=== PATIENT | female | born 1955 | race Caucasian/White ===

== ENCOUNTER 2024-09-22 10:08 | Observation (INO) | payer SELFPAY ==
--- NOTE | 2024-09-14 09:08 | EKG12_ITS ---
Test Reason : PREOP Blood Pressure : */* mmHG Vent. Rate : 73 BPM Atrial Rate : 73 BPM P-R Int : 172 ms QRS Dur : 76 ms QT Int : 390 ms P-R-T Axes : 56 78 82 degrees QTcB Int : 429 ms Normal sinus rhythm Nonspecific ST abnormality Abnormal ECG Confirmed by GRECIA WOODRUFF, HECTOR ([id number]), metropolitan editor LEONARD REYES ([id number]) on 09/15/2024 5:51:04 AM Referred By: Eda Sanabria Confirmed By: HECTOR PAIGE MD
[2024-09-14 10:00] LABS: Hemoglobin 15.1 g/dL (12.0-15.0); Mean Corp Hgb Conc 32.8 g/dL (32-36); Mean Corpuscular Hgb 28.8 pg (27.0-32.0); Mean Corpuscular Volume 87.8 fL (81-99); Platelet Count 350 K/mm3 (150-450); RBC Distribution Width CV 13.8 % (11.6-14.6); RBC Distribution Width SD 44.5 fl (35.1-43.9); Red Blood Count 5.24 M/mm3 (4.2-5.4); White Blood Count 8.5 K/mm3 (4.4-11.0)
[2024-09-14 10:47] LABS: Anion Gap 5 (5-15); BUN 13 mg/dL (7-18); BUN/Creat Ratio 16.5 RATIO (10-20); Calcium,Total 9.5 mg/dL (8.5-10.1); Chloride 106 mmol/L (98-107); Creatinine, Serum 0.79 mg/dL (0.55-1.02); EST Glomerular Filtration Rate 77 mL/min (>60); Est Glom Filt Rate - Afr Amer 93 mL/min (>60); Glucose 119 mg/dL (74-106); Potassium 3.5 mmol/L (3.5-5.1); Sodium Level 140 mmol/L (136-145)
--- NOTE | 2024-09-14 13:59 | PAT.ANESEVAL ---
Pre-Assessment Diagnosis/Proposed Procedure Planned Operative Procedure(s): A&P REPAIR,BILAT SACROSPINOUS LIGAMENT FIXATION WITH DERMIS MIDURETHERAL SLING CYSTO WITH BILAT URETHERAL CATHERIZATION Anesthesia History Anesthesia History - fourdrinier machine tender: Anesthesia History - fourdrinier machine tender Hx Hospitalization No 09/13/24 14:05 Any Problems With Anesthesia No 09/13/24 14:05 Cholinesterase deficiency No 09/13/24 14:05 You/Your Family Experience No 09/13/24 14:05 fever (hyperthermia) with Relationship Recent Exposure to Contagious Disease Does patient have nerve No 09/13/24 14:05 stimulator Patient instructed to have device shut off --Does patient have Pacemaker or ICD? When Was Last Pacemaker Check QUESTION #4 FULL TEXT: You/Your Family Experience fever (hyperthermia) with Anesthesia Last Oral Intake Last Oral intake: Last Oral Intake NPO since Meds taken in AM with sips of water? Meds patient instructed to take am of surgery PONV PONV - fourdrinier machine tender: PONV - fourdrinier machine tender Female Yes 09/13/24 14:05 HX of Motion Sickness No 09/13/24 14:05 HX of N/V After Surgery No 09/13/24 14:05 Non-Smoker Yes 09/13/24 14:05 Duration of Surgery greater Yes 09/13/24 14:05 than 60 minutes Number of Risk Factors 3 09/13/24 14:05 PONV Score Moderate Risk 09/13/24 14:05 Respiratory Assessment Respiratory Assessment - fourdrinier machine tender: Respiratory Tract Infection Hx - fourdrinier machine tender Hx Respiratory Tract Infection No 09/13/24 14:05 STOP Sleep Apnea STOP Sleep Apnea - fourdrinier machine tender: STOP Sleep Apnea - fourdrinier machine tender Hx Hypertension No 09/13/24 14:05 Hx Sleep Apnea No 09/13/24 14:05 CPAP BIPAP Do you snore loudly (louder Yes 09/13/24 14:05 than talking or can be heard Do you often feel tired/ Yes 09/13/24 14:05 fatigued/ sleepy during daytime? Has anyone observed you stop No 09/13/24 14:05 breathing during sleep? STOP Results Positive 09/13/24 14:05 QUESTION #5 FULL TEXT : Do you snore loudly (louder than talking or can be heard through closed doors)? Tobacco Use History Tobacco Use History - fourdrinier machine tender: Tobacco Use History - fourdrinier machine tender Tobacco Use Smoking Status Never smoker 09/13/24 14:05 Hx Tobacco Use No 09/13/24 14:05 Years Smoking Packs Smoked per Day Smoking Cessation Date was within the last 15 years Hx Smoking Cessation Date Hx Smoking Cessation Counseling Hematologic Medial History Hematologic Hx - fourdrinier machine tender: Hematologic Medical Hx - cable placer Hx of Blood Transfusion No 09/13/24 14:05 Hx of Transfusion in last 3 No 09/13/24 14:05 Months Date of Last Transfusion (if within last 3 months) Ever experience any problems No 09/13/24 14:05 with transfusion(s)? Specify any problems Hx of Preganancy in last 3 No 09/13/24 14:05 Months Nurse Filling Out Transfusion DSCHRIBER 09/13/24 14:05 & Questions: Date: 09/13/24 09/13/24 14:05 Time: 14:07 09/13/24 14:05 Patient unable to answer at this time (ie. confused, unrespo /Reproduction History /Reproductive History - fourdrinier machine tender: /Reproductive Hx- fourdrinier machine tender Hx Now No 09/13/24 14:05 Gestational Age (in weeks): EDC: Hx Hx Para Hx Section SAB No 09/13/24 14:05 PFSH Medical History (Updated 09/13/24 @ 14:14 by Dede Mendoza) Loss of hearing Wears glasses Wears partial dentures Post-menopausal Depression Anxiety Arthritis Bladder disease Restless legs Back pain Heartburn Shortness of breath on exertion Non-smoker History of pain when walking History of edema Hx of fracture of ankle Home Medications ?Medication ?Instructions ?Recorded ?Last Taken ?Type ZEOLITE 2 cap PO DAILY 09/13/24 Unknown History calcium lactate 325 mg tablet 650 mg PO DAILY 09/13/24 Unknown History cascara sagrada 450 mg capsule 900 mg PO DAILY 09/13/24 Unknown History cetirizine 10 mg capsule (Allergy 10 mg PO DAILY 09/13/24 Unknown History Relief (cetirizine)) cholecalciferol (vitamin D3) 25 25 mcg PO DAILY 09/13/24 Unknown History mcg (1,000 unit) capsule (Vitamin D3) d-mannose 500 mg capsule 500 mg PO DAILY 09/13/24 Unknown History garlic 200 mg tablet 200 mg PO BID 09/13/24 Unknown History iodine (kelp) 1 tab PO DAILY 09/13/24 Unknown History mirtazapine 30 mg tablet 30 mg PO QHS 09/13/24 Unknown History vitamin B complex (Vitamins B 1 tab PO DAILY 09/13/24 Unknown History Complex tablet) zinc gluconate 50 mg tablet 50 mg PO DAILY 09/13/24 Unknown History Allergy/AdvReac Type Severity Reaction Status Date / Time Tetracyclines AdvReac Intermediate Other Verified 09/13/24 13:54 Surgical History (Updated 09/13/24 @ 14:14 by Dede Mendoza) History of lumbar spinal fusion Hx of hysterectomy History of Hx of appendectomy Hx of tonsillectomy Social History Smoking Status: Never smoker Audit: Pertinent Findings Pertinent Findings EKG Perinent findings: 09/14/2014 normal sinus rhythm [address] Recommendation Anesthesia Recommendation Anesthesia recommendation: OPTIMIZED for anesthesia
[2024-09-22] VITALS (16 sets, daily range): BP systolic 104–154; BP diastolic 57–94; PULSE 64–76; RESP 16–20; TEMP 35.8–36.9; O2SAT 94–100; BMI 28.7
[2024-09-22] MEDS: Lidocaine 1% /Epi 1:100 (20ml) 20 ML Vial ×2 (06:46→09:37)
[2024-09-22] MEDS: 0.9% Normal Saline (1000mL) 1,000 ML 15 ML IV (06:47)
--- NOTE | 2024-09-22 07:09 | PCM.PRE.AN2 ---
ASA Classification* ASA Classification ASA Classification: 2 Assessment & Plan Anesthesia* Anesthesia Assessment Anesthesia Assessment: Discussed sedation and/or anesthesia options, risks, benefits, and alternatives with patient/parents/legal guardian/POA. Questions invited. The patient/parents/legal guardian/POA seems to understand and agrees to proceed with anesthesia plan. Reviewed the physical assessment, medical history, allergy history and patient home medications list prior to surgery/procedure/anesthetic and documented any changes. Performed airway and anesthesia risk assessments. Anesthesia Type Anesthesia Type: General History Source History Obtained from:: Patient and Chart Anesthesia Focused Assessment* Temperature: 97.6 F Pulse Rate: 70 Blood Pressure: 151/94 Respiratory Rate: 20 Pulse Ox: 97 Oxygen Delivery Method: Room Air Airway Assessment Mouth opens: >3 cm Mallampati Score: III Teeth Condition: Intact Neck Range of motion (ROM): Full ROM Focused Labs Anesthesia Preop lab: CBC WBC 8.5 K/mm3 (4.4-11.0) 09/14/24 09:24 RBC 5.24 M/mm3 (4.2-5.4) 09/14/24 09:24 Hgb 15.1 g/dL (12.0-15.0) H 09/14/24 09:24 Hct 46.0 % (37-47) 09/14/24 09:24 Plt Count 350 K/mm3 (150-450) 09/14/24 09:24 CHEMISTRY Potassium 3.5 mmol/L (3.5-5.1) 09/14/24 09:24 Sodium 140 mmol/L (136-145) 09/14/24 09:24 BUN 13 mg/dL (7-18) 09/14/24 09:24 Creatinine 0.79 mg/dL (0.55-1.02) 09/14/24 09:24 Glucose 119 mg/dL (74-106) H 09/14/24 09:24 COAG Pre-Assessment Diagnosis/Proposed Procedure Planned Operative Procedure(s): A&P REPAIR,BILAT SACROSPINOUS LIGAMENT FIXATION WITH DERMIS MIDURETHERAL SLING CYSTO WITH BILAT URETHERAL CATHERIZATION Anesthesia History Anesthesia History - couture alterations dressmaker: Anesthesia History - couture alterations dressmaker Hx Hospitalization No 09/13/24 14:05 Any Problems With Anesthesia No 09/13/24 14:05 Cholinesterase deficiency No 09/13/24 14:05 You/Your Family Experience No 09/13/24 14:05 fever (hyperthermia) with Relationship Recent Exposure to Contagious No 09/22/24 06:32 Disease Does patient have nerve No 09/13/24 14:05 stimulator Patient instructed to have device shut off --Does patient have Pacemaker No 09/22/24 06:32 or ICD? When Was Last Pacemaker Check QUESTION #4 FULL TEXT: You/Your Family Experience fever (hyperthermia) with Anesthesia Last Oral Intake Last Oral intake: Last Oral Intake NPO since 22:00 09/22/24 06:32 Meds taken in AM with sips of water? Meds patient instructed to take am of surgery PONV PONV - couture alterations dressmaker: PONV - couture alterations dressmaker Female Yes 09/13/24 14:05 HX of Motion Sickness No 09/13/24 14:05 HX of N/V After Surgery No 09/13/24 14:05 Non-Smoker Yes 09/13/24 14:05 Duration of Surgery greater Yes 09/13/24 14:05 than 60 minutes Number of Risk Factors 3 09/13/24 14:05 PONV Score Moderate Risk 09/13/24 14:05 Height & Weight Height & Weight: Anesthesia: Height & Weight Height 5 ft 1 in 09/22/24 06:32 Weight: 69 kg 09/22/24 06:32 Body Mass Index (BMI) 28.7 09/22/24 06:32 Respiratory Assessment Respiratory Assessment - couture alterations dressmaker: Respiratory Tract Infection Hx - couture alterations dressmaker Hx Respiratory Tract Infection No 09/13/24 14:05 STOP Sleep Apnea STOP Sleep Apnea - couture alterations dressmaker: STOP Sleep Apnea - couture alterations dressmaker Hx Hypertension No 09/13/24 14:05 Hx Sleep Apnea No 09/13/24 14:05 CPAP BIPAP Do you snore loudly (louder Yes 09/13/24 14:05 than talking or can be heard Do you often feel tired/ Yes 09/13/24 14:05 fatigued/ sleepy during daytime? Has anyone observed you stop No 09/13/24 14:05 breathing during sleep? STOP Results Positive 09/13/24 14:05 QUESTION #5 FULL TEXT : Do you snore loudly (louder than talking or can be heard through closed doors)? Tobacco Use History Tobacco Use History - couture alterations dressmaker: Tobacco Use History - couture alterations dressmaker Tobacco Use Smoking Status Never smoker 09/13/24 14:05 Hx Tobacco Use No 09/13/24 14:05 Years Smoking Packs Smoked per Day Smoking Cessation Date was within the last 15 years Hx Smoking Cessation Date Hx Smoking Cessation Counseling Hematologic Medial History Hematologic Hx - couture alterations dressmaker: Hematologic Medical Hx - furnace cooler Hx of Blood Transfusion No 09/13/24 14:05 Hx of Transfusion in last 3 No 09/13/24 14:05 Months Date of Last Transfusion (if within last 3 months) Ever experience any problems No 09/13/24 14:05 with transfusion(s)? Specify any problems Hx of Preganancy in last 3 No 09/13/24 14:05 Months Nurse Filling Out Transfusion DSCHRIBER 09/13/24 14:05 & Questions: Date: 09/13/24 09/13/24 14:05 Time: 14:07 09/13/24 14:05 Patient unable to answer at this time (ie. confused, unrespo /Reproduction History /Reproductive History - couture alterations dressmaker: /Reproductive Hx- couture alterations dressmaker Hx Now No 09/13/24 14:05 Gestational Age (in weeks): EDC: Hx Hx Para Hx Section SAB No 09/13/24 14:05 Active Medications Active Medications: Current Medications Generic Name Dose Route Start Last Admin Trade Name Freq PRN Reason Stop Dose Admin Cefazolin Sodium 2 gm/ N/A 20 mls @ 400 mls/hr 09/22/24 07:30 IV 09/22/24 07:32 PREOP ONE Sodium Chloride 1,000 mls @ 15 mls/hr 09/22/24 06:15 09/22/24 06:47 IV 09/27/24 19:34 15 mls/hr .Q48H YAJAIRA Administration Protocol PFSH Medical History Loss of hearing Wears glasses Wears partial dentures Post-menopausal Depression Anxiety Arthritis Bladder disease Restless legs Back pain Heartburn Shortness of breath on exertion Non-smoker History of pain when walking History of edema Hx of fracture of ankle Home Medications ?Medication ?Instructions ?Recorded ?Last Taken ?Type ZEOLITE 2 cap PO DAILY 09/13/24 09/21/24 History calcium lactate 325 mg tablet 650 mg PO DAILY 09/13/24 09/21/24 History cascara sagrada 450 mg capsule 900 mg PO DAILY 09/13/24 09/21/24 History cetirizine 10 mg capsule (Allergy 10 mg PO DAILY 09/13/24 09/21/24 History Relief (cetirizine)) cholecalciferol (vitamin D3) 25 25 mcg PO DAILY 09/13/24 09/21/24 History mcg (1,000 unit) capsule (Vitamin D3) d-mannose 500 mg capsule 500 mg PO DAILY 09/13/24 09/21/24 History garlic 200 mg tablet 200 mg PO BID 09/13/24 09/21/24 History iodine (kelp) 1 tab PO DAILY 09/13/24 09/21/24 History mirtazapine 30 mg tablet 30 mg PO QHS 09/13/24 09/20/24 History vitamin B complex (Vitamins B 1 tab PO DAILY 09/13/24 09/21/24 History Complex tablet) zinc gluconate 50 mg tablet 50 mg PO DAILY 09/13/24 09/21/24 History Allergy/AdvReac Type Severity Reaction Status Date / Time Tetracyclines AdvReac Intermediate Other Verified 09/22/24 06:29 Surgical History History of lumbar spinal fusion Hx of hysterectomy History of Hx of appendectomy Hx of tonsillectomy Social History Smoking Status: Never smoker Addt'l Information Additional Findings: NSR on EKG Review of Systems (Anesthesia) ROS Narrative System reviewed and no additional complaints, except as documented.
[2024-09-22] MEDS: Cefazolin 2 GM in Syringe IV (07:30)
[2024-09-22] MEDS: Estrogens,Conj. 1 Tube 1 DOSE (09:36)
--- NOTE | 2024-09-22 09:55 | PCM.POST.ANE ---
Anesthesia: Postop Eval I Current Vital Signs Temperature: 98.5 F Pulse Rate: 73 Blood Pressure: 142/94 Respiratory Rate: 16 Pulse Ox: 94 Assessment Airway patent: Yes Spontaneous unlabored respirations: Yes nausea: No Vomiting: No Anesthesia Complication: No Fluid Hydration Crystalloid volume administer (ml): 1,400 Total IV fluid infused: 1,400 Progress Note Anesthesia document: Postop Eval 1 completed: Yes
--- NOTE | 2024-09-22 10:11 | PCM.OPRPT ---
Operative Report (Standard) Operative Information Date of Procedure: 09/22/24 Pre-Operative Diagnosis: Cystocele, rectocele, vaginal vault prolapse, stress urinary incontinence Post-Operative Diagnosis: Same Surgery/Procedure Performed: Anterior and posterior repair, right sacrospinous ligament fixation, mid urethral sling, cystourethroscopy with left ureteral catheterization polyethylene combiner: Yes Program Manager Slp: Medhat Box Tasks completed by surgical dental assistant: Retracting Additional preschool teacher assistant?: No Type of Anesthesia: General RN Documented Start/Stop Times: Operation Date: 09/22/24 07:30 Case Time Into Pre-Op 09/22/24 06:13 Out of Pre-Op 09/22/24 07:27 Anesthesia Start 09/22/24 07:30 Into Room 09/22/24 07:30 Procedure Start 09/22/24 07:50 Procedure End 09/22/24 09:39 Anesthesia End 09/22/24 09:46 Out of Room 09/22/24 09:46 Into Recovery 09/22/24 09:48 Procedure Start Time: 07:50 Procedure Stop Time: 09:39 Select all DRAINS/GRAFTS/IMPLANTS that apply: Drains Drain details: 16Fr borges catheter Estimated Blood Loss: 50cc Specimen collected: No Description of surgery: The patient is a 69-year-old female with pelvic organ prolapse who underwent office testing with cystoscopy and urodynamics preoperatively. She now presents for surgical intervention. Informed consent was obtained. The patient was taken to the operating room and placed on the operating room table. Anesthesia monitored the head, neck, airway, IV access and vital signs throughout the case. Once anesthesia was appropriately administered, she was placed into exaggerated dorsolithotomy and Trendelenburg position. She was appropriately prepped and draped for the procedure. A 16 Citizen [place] Borges catheter was inserted to straight drain and the bladder was emptied. The anterior defect was isolated and injected submucosally with 1% lidocaine with epinephrine for hydrostatic dissection and hemostatic control. A vertical midline incision approximately 2 cm in length was made. Sharp and blunt dissection was performed bilaterally with care being taken to avoid entrance into the urinary bladder or the vaginal mucosa. On the right side, dissection was performed all the way to the ischial spine and the sacrospinous ligament was freed from surrounding tissue. On the patient's left side, a large arterial bleeder was encountered in the area of dissection plane for the sacrospinous ligament. This required closure with 2-0 Vicryl suture. This closed off the area of dissection and the decision was made to proceed with unilateral sacrospinous ligament fixation. The saffron device was utilized for placing a 2-0 PDS suture through the sacrospinous ligament and this was brought out through the vaginal apex in full-thickness fashion using a free needle. The pubocervical fascia was then brought together in 2 layer closure using a combination of interrupted 2-0 Vicryl and 4-0 PDS suturing. The vaginal mucosa was then closed with running interlocking 2-0 Vicryl. At this time the patient was placed in a flat supine position and the Borges catheter was removed. The cystoscope was inserted through the urethra under direct visualization into the urinary bladder. The bladder mucosa remained intact with no evidence of injury, foreign body or mucosal abnormality. The left ureteral orifice was easily intubated with a 5 Citizen [place] whistle-tip catheter which was advanced without difficulty all the way to 25 cm. There is no evidence of obstruction or injury. The process was attempted on the patient's right side but there was significant J hooking of the ureteral orifice. I was unable to pass a 0.035 angled tipped Glidewire. The patient was given intravenous methylene blue and a blue ureteral jet was observed bilaterally, indicating no evidence of ureteral injury or obstruction. The cystoscope was then removed and the Borges catheter was reinserted draining the urine bladder. At this time attention was turned towards the posterior defect. The submucosa was injected with 1% lidocaine with epinephrine and a midline incision was made approximately 2 cm in length. Sharp and blunt dissection was performed bilaterally until the rectovaginal fascia was identified. This was brought together in a 2 layer closure using 2-0 Vicryl and 4-0 PDS. The perineal body was reconstructed using interrupted suture as well. At this time the vaginal incision was closed using running interlocking 2-0 Vicryl. The mid urethra was then isolated and injected submucosally with 1% lidocaine with epinephrine for hemostatic control and hydrostatic dissection. A vertical midline incision was made approximately 1.5 cm in length. Sharp and blunt dissection was performed on either side of the urethra with care being taken to avoid entrance into the urethra or the vaginal mucosa. At this time, the trocars provided were used to pass the sling and tines through the obturator fascia bilaterally. The sling was positioned using the tensioning suture which was then cut. The sling lay flat against the urethra. The incision in the mucosa was closed using running interlocking 2-0 Vicryl. The patient was sent placed in the supine position and the Borges catheter was removed once again. The cystoscope was inserted under direct visualization into the urinary bladder with no evidence of injury to the urethra or the urinary bladder. The cystoscope was then removed and the Borges catheter was replaced. The vagina was packed with vaginal packing and estrogen cream. She was awakened and taken to the recovery room in good condition. There were no complications during this procedure. Surgical Findings: Mild vaginal vault defect, anterior and posterior defects repaired primarily, significant right ureteral J hooking, no complications procedure Complications Complications: No Admit VTE Documentation VTE Present on Admission: Yes VTE Mechan Device Prophylaxis: SCD's VTE Pharm Prophylaxis ordered?: Yes
[2024-09-22] MEDS: Ketorolac 15 MG/ML Vial IV ×2 (10:54→20:40)
--- NOTE | 2024-09-22 19:04 | POSTOPAN2_ITS ---
Anesthesia Postop Eval I Sum Postop Eval Completion status Anesthesia document: Postop Eval 1 completed: Yes Anesthesia Postop Eval I Summary Anesthesia Postop Eval I Summary: Anesthesia Postop Eval I: Assessment Summary Airway patent Yes 09/22/24 09:55 TEST [email or web address] Spontaneous unlabored Yes 09/22/24 09:55 TEST [email or web address].[email or web address] respirations Mental status nausea No 09/22/24 09:55 TEST [email or web address].[email or web address] Vomiting No 09/22/24 09:55 TEST [email or web address].[email or web address] Anesthesia Postop Eval I: Fluid Summary Crystalloid volume administer 1,400 09/22/24 09:55 TEST CONDUCTOR.TNES (ml) Colloids volume administered ( ml) Blood Product volume administered (ml) Total IV fluid infused 1,400 09/22/24 09:55 TEST [email or web address].[email or web address] Anesthesia Postop Eval I: Summary Notes Anesthesia Complication No 09/22/24 09:55 TEST [email or web address].TNES Anesthesia Complication Comment: Post-operative progress note Anesthesia: Postop Eval II Evaluation Mental status: Awake and Calm Pain Level: 2 nausea: No Vomiting: No Complications Anesthesia Complication: No
--- NOTE | 2024-09-22 19:04 | PCM.POSTANE2 ---
Anesthesia Postop Eval I Sum Postop Eval Completion status Anesthesia document: Postop Eval 1 completed: Yes Anesthesia Postop Eval I Summary Anesthesia Postop Eval I Summary: Anesthesia Postop Eval I: Assessment Summary Airway patent Yes 09/22/24 09:55 MILK BOTTLING MACHINE OPERATOR.[email or web address] Spontaneous unlabored Yes 09/22/24 09:55 MILK BOTTLING MACHINE OPERATOR.TNES respirations Mental status nausea No 09/22/24 09:55 MILK BOTTLING MACHINE OPERATOR.TNES Vomiting No 09/22/24 09:55 MILK BOTTLING MACHINE OPERATOR.TNES Anesthesia Postop Eval I: Fluid Summary Crystalloid volume administer 1,400 09/22/24 09:55 MILK BOTTLING MACHINE OPERATOR.TNES (ml) Colloids volume administered ( ml) Blood Product volume administered (ml) Total IV fluid infused 1,400 09/22/24 09:55 MILK BOTTLING MACHINE OPERATOR.TNES Anesthesia Postop Eval I: Summary Notes Anesthesia Complication No 09/22/24 09:55 MILK BOTTLING MACHINE OPERATOR.TNES Anesthesia Complication Comment: Post-operative progress note Anesthesia: Postop Eval II Evaluation Mental status: Awake and Calm Pain Level: 2 nausea: No Vomiting: No Complications Anesthesia Complication: No
[2024-09-22] MEDS: Docusate Sodium 100 MG Capsule PO (20:41)
[2024-09-22] MEDS: Mirtazapine 30 MG Tablet PO (20:41)
[2024-09-22] MEDS: Cephalexin 500 MG Capsule PO (20:41)
[2024-09-23 00:44] VITALS: BP 155/89; PULSE 77; RESP 16; TEMP 36.8; O2SAT 94
[2024-09-23] MEDS: oxyCODONE 5 MG Tablet PO (01:25)
[2024-09-23 04:44] VITALS: BP 135/69; PULSE 77; RESP 16; TEMP 36.8; O2SAT 94
[2024-09-23 07:13] VITALS: O2SAT 94
--- NOTE | 2024-09-23 08:47 | EX.PCM.DISCH ---
Discharge Instructions Diet Discharge Diet: No restrictions Activity Discharge Activity: May Shower May resume sexual activity in: 8 weeks Lifting Restrictions: 5 pounds Additional Activity Instructions:: No exercise, strenuous activity, tub bathing, swimming, hot tubs, sexual activity Dressing / Incision Call your doctor if your incision/area has: Continuous Slow Oozing, Sudden Increased Bleeding, Increased Pain/ Swelling and Foul Smelling Discharge Call your doctor if you observe: Fever of 101 or Higher, Inability to urinate and Inability to have a bowel movement Follow Up Care Please Follow Up With: Eda Sanabria MD When: The office will call to make follow-up arrangements pending her trial of void today. Test Results: Test results from this visit will be discussed in further detail at your follow-up appointment, if applicable. Discharge Plan Admission Admit Date/Time: 09/22/24 10:08 Attending Provider: Eda Sanabria Primary Care Provider: Kyree Peterson Discharge Orders/Prescriptions Prescriptions: New oxycodone-acetaminophen 5-325 mg tablet 1 tab PO Q8H PRN (Reason: pain) 3 Days Qty: 10 0RF cephalexin 500 mg capsule 500 mg PO Q12 3 Days Qty: 6 0RF ondansetron 4 mg tablet,disintegrating 4 mg PO Q8H PRN (Reason: nausea and vomiting) Qty: 10 0RF Continued mirtazapine 30 mg tablet 30 mg PO QHS iodine (kelp) Tablet 1 tab PO DAILY garlic 200 mg tablet 200 mg PO BID ZEOLITE 2 cap PO DAILY d-mannose 500 mg capsule 500 mg PO DAILY vitamin B complex [Vitamins B Complex] Tablet 1 tab PO DAILY cascara sagrada 450 mg capsule 900 mg PO DAILY Allergy Relief (cetirizine) 10 mg capsule 10 mg PO DAILY zinc gluconate 50 mg tablet 50 mg PO DAILY calcium lactate 325 mg tablet 650 mg PO DAILY cholecalciferol (vitamin D3) [Vitamin D3] 25 mcg (1,000 unit) capsule 25 mcg PO DAILY Disposition Disposition (needs filled in before D/C Order can be placed): Home, Self Care
--- NOTE | 2024-09-23 08:51 | PCM.PN.GU ---
Subjective Subjective Doing well this morning. She was sore last night requiring pain medication to sleep. Otherwise no issues. Tolerating p.o., out of bed and ambulating. Objective Data Objective Data Vital Signs: Vital Signs Temp Pulse Resp BP Pulse Ox O2 Del Method O2 Flow Rate 98.3 F 77 16 135/69 H 94 Room Air 3 09/23/24 04:44 09/23/24 04:44 09/23/24 04:44 09/23/24 04:44 09/23/24 07:13 09/23/24 07:13 09/22/24 12:44 Oxygen Flow Rate (L/min) 3 Oxygen Delivery Method Room Air Weight: 69 kg Body Mass Index (BMI) 28.7 Intake & Output: Intake and Output for Last 24 Hours 09/21/24 09/22/24 09/23/24 23:59 23:59 23:59 Intake Total 2520.75 / 2520.75 1000 / 1000 Output Total 720 / 720 2100 / 2100 Balance 1800.75 / 1800.75 -1100 / -1100 Lab / Micro Data 09/14/24 09:24 09/14/24 09:24 Physical Exam Narrative Abdomen soft nontender nondistended Salgado catheter draining blue-tinged urine, removed without difficulty Vaginal packing removed SCDs are not in place, lower extremities are nontender and no edema Const alert, oriented x3 and no apparent distress Assessment & Plan Assessment/Plan (1) Cystocele with rectocele: (2) ARLEN (stress urinary incontinence, female): PLAN: Plan Await CBC results Await voiding trial Home later today
[2024-09-23 08:59] VITALS: BP 136/78; PULSE 74; RESP 14; TEMP 36.5; O2SAT 96
[2024-09-23] MEDS: Enoxaparin 40 MG/0.4 ML Syringe SC (09:01)
[2024-09-23] MEDS: Loratadine 10 MG Tablet PO (09:01)
[2024-09-23] MEDS: Docusate Sodium 100 MG Capsule PO (09:01)
[2024-09-23] MEDS: Cephalexin 500 MG Capsule PO (09:01)
--- NOTE | 2024-09-23 09:55 | NURSING ---
CARA REMOVED BY DR BAIN THIS AM
--- NOTE | 2024-09-23 12:39 | CASEMGMT ---
Pt has an order for DC placed. 6-Click score is 24. RN CM to pt room at this time. Pt states that she feels safe returning home with her family today and that she is feeling much better. 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 Pt denies further needs at this time.
== END 2024-09-23 13:35 | disposition home or self-care (01) ==
LOC: SDC 12:02 → MS3 12:02
PROVIDERS: Admitting Provider Urology; PCP Physician Assistant; Referring Provider Urology; Visit Provider Urology
PROC: (CPT 57260; principal; 2024-09-22 07:15)
DX: N99.3 Prolapse of vaginal vault after hysterectomy (principal); N39.46 Mixed incontinence; N36.42 Intrinsic sphincter deficiency (ISD); N95.2 Postmenopausal atrophic vaginitis; N32.81 Overactive bladder; K59.09 Other constipation; Z79.899 Other long term (current) drug therapy
CPT/HCPCS: 57260; 57288; 00942; 36415; 80048; 85027; 93005; 94668; 94762; 96372; 96374; 96376; 99221; C1758; G0378; J2405